=== PATIENT | female | born 1995 | race Caucasian/White ===

== ENCOUNTER 2020-05-05 16:03 | Outpatient (REF) | payer OTHER, SELFPAY | END 2020-05-05 16:04 | disposition home or self-care (01) | LOC: HO.LAB 16:03 | PROVIDERS: Visit Provider Internal Medicine | DX: Z20.828 Contact with and (suspected) exposure to other viral communicable diseases (principal) | CPT/HCPCS: 87635 ==

== ENCOUNTER 2020-07-09 07:39 | Outpatient (REF) | payer OTHER, SELFPAY | END 2020-07-09 07:40 | disposition home or self-care (01) | LOC: HO.LAB 07:39 | PROVIDERS: Visit Provider Internal Medicine | DX: Z20.828 Contact with and (suspected) exposure to other viral communicable diseases (principal) | CPT/HCPCS: C9803; U0003 ==

== ENCOUNTER 2020-11-04 12:19 | Emergency (ER) | payer OTHER, SELFPAY ==
--- NOTE | ~2020-11-04 | XR_ITS ---
EXAMINATION: XR HAND, RIGHT CLINICAL INFORMATION: Crush injury/NAILBED Injury COMPARISON: None TECHNIQUE: PA, lateral, and oblique views of the right hand. FINDINGS: There is soft tissue irregularity consistent with laceration about the dorsal aspect of the second distal phalanx/NAIL Bed. No radio opaque foreign body. No acute fracture or dislocation. XR/XR hand RT min 3V IMPRESSION: Laceration without underlying bony abnormality right second distal phalanx.
[2020-11-04 12:37] VITALS: BP 101/61; PULSE 66; RESP 16; TEMP 36.7; O2SAT 100; BMI 30.8
[2020-11-04] MEDS: Acetaminophen 325 MG TABLET 650 MG PO (12:55)
--- NOTE | 2020-11-04 12:58 | ED.EXTPRO ---
HPI - Extremity Problem General Chief complaint: Extremity Injury, Upper Stated complaint: R HAND INJ AT WORK Time Seen by Provider: 11/04/20 13:49 Source: patient Mode of arrival: ambulatory Limitations: no limitations History of Present Illness HPI Narrative: Patient brought to ED for right hand pain. Patient states box at work fell onto hand. Patient states pain at nails on 2/3/4 finger. Patient denies any other trauma. Related Data Previous Rx's Medication Instructions Recorded cephalexin 500 mg PO QID 7 Days #28 cap 11/04/20 naproxen 500 mg PO BID PRN #20 tab 11/04/20 Allergies Allergy/AdvReac Type Severity Reaction Status Date / Time aspirin [ASA] Allergy Unknown THROAT Unverified 03/26/20 19:39 SWELLING Review of Systems Review of Systems: Yes all other systems are reviewed and are negative Constitutional: Constitutional: Reports as per HPI and Reports no additional constitutional complaints Eyes: Eyes: Reports as per HPI and Reports no additional eye complaints ENT: Reports system reviewed and no additional complaints, except as documented and Reports as per HPI Cardiovascular: Cardiovascular: Reports as per HPI and Reports no additional cardiovascular complaints Respiratory: Respiratory: Reports as per HPI and Reports no additional respiratory complaints Gastrointestinal: Gastrointestinal: Reports as per HPI and Reports no additional gastrointestinal complaints Genitourinary: Genitourinary: Reports no additional female genitourinary complaints and Reports as per HPI Musculoskeletal: Musculoskeletal: Reports no additional musculoskeletal complaints and Reports as per HPI Comments: Right hand pain Neurologic: Reports system reviewed and no additional complaints, except as documented and Reports as per HPI Psychiatric: Psychiatric: Reports no additional psychiatric complaints and Reports as per HPI [facility] Past Medical History Medical History (Updated 11/05/20 @ 00:00 by Background Daemon) Asthma Social History Social History Smoked in Last 30 Days: No Use of substances other than those prescribed or required for medical reasons: Yes Substance Use Type: Marijuana Substance Use Frequency: Socially Advance Directives: No Advance Directives Information Provided: No Physical Exam Vital Signs: Vital Signs: Last Vital Signs Temp 98.0 F 11/04/20 12:37 Pulse 89 11/04/20 14:38 Resp 18 11/04/20 14:38 BP 110/68 11/04/20 14:38 Pulse Ox 98 11/04/20 14:38 Body Mass Index 30.8 Const: General: cooperative, healthy appearing, comfortable, no acute distress, well developed, alert, awake and Physically active Orientation/consciousness: patient oriented x3 HENMT: Head: Yes normal to inspection, Yes No palpable skull fracture present, Yes normocephalic, Yes atraumatic and No abrasion Eyes: General: appearance normal, both eyes and all related structures Neck: Neck: Yes normal visual inspection, Yes full ROM, Yes no lymphadenopathy, Yes no meningeal signs, Yes trachea midline, Yes supple and No tender Chest: Chest palpation & inspection: normal inspection of the chest and normal palpation of entire chest wall Resp: Effort & Inspection: normal respiratory effort and able to speak in complete sentences Auscultation: clear to auscultation bilaterally Cardio: Jugular venous distension: no JVD Heart sounds: S1 normal heart sound present and S2 normal heart sound present GI: Inspection: Yes normal to inspection and No abdominal wall ecchymosis Palpation (GI): Soft to palpation, not firm, nontender, no guarding and not rigid : General: No CVA tenderness and Yes no CVA tenderness Back/Spine/Pelvis: Back: no CVA tenderness, No CVA tenderness and No back tenderness Skin: General skin exam: no rashes or lesions noted and elasticity normal Neuro: General: patient oriented x3, no meningeal signs and CN's II-XI intact bilaterally Cranial nerves: Yes CN's II-XII intact bilaterally Extrem: Other: Rigt hand: cracked nail stuck into nail bed of 2nd finger. Third finger positive for slight cracked in nail, but negative subungal hematoma. 4th finger has fake nail and actual nail plate almost coming. All fingers has complete range of motion and negative for defomities. Motor, neuro and vascular exam of right upper extremity is intact. General: Yes normal to inspection and Yes full ROM Psych: Appearance: grossly normal, well kempt and not disheveled Course Course Course Narrative: Patient will be sent for hand x-ray. Reevaluation(s) Reevaluation #1: Tetanus order an oxycodone for pain relief. 4th finger nail fake nail and actual nail plate removed completey. Third finger left nail left on. 4ml of 2% lidocaine used to digital block second finger. Finger cleaned with bethadine and sterile saline. piece of nail stuck into nail bed of second finger was removed. Plan was to search for possible nail bed laceration and repaired, but patient refused and prefer just for dressing. patient dischaged with antibiotics. Patient will follow up with hand surgeon. MDM - Extremity (Nontraumatic) MDM Narrative Medical decision making narrative: Partial nail removal Lab Data Labs: Lab Results 11/04/20 Range/Units 14:30 Urine Test NEGATIVE (NEGATIVE) Discharge Plan Discharge Clinical Impression: Nail avulsion, finger Patient Disposition: Home, Self-Care Instructions: Nail Avulsion (ED), Nail Removal (ED) Additional Instructions: Return to the ED immediately swelling of fingers, redness, pus discharge, foul odor, fever, chills, or any other concerning symptoms. Please follow-up with your primary care provider Prescriptions: New cephalexin 500 mg capsule 500 mg PO QID 7 Days Qty: 28 RF: 0 naproxen 500 mg tablet 500 mg PO BID PRN (Reason: pain) Qty: 20 RF: 0 Referrals: Melanie Claire MD [Physician] - 2 days (Nail avulsion. Nail plates removed. Xray negative for fracture) Stand Alone Forms: Work/School Release Interventions: ED Discharge Assessment Last Done: 11/04/20 14:59 Discharge Date/Time: 11/04/20 15:00 Print Language: Cymraes
[2020-11-04] MEDS: Lidocaine HCl 2 % MPF 5 ML VIAL INFILTRATI ×2 (13:19)
[2020-11-04] MEDS: oxyCODONE HCl Immed Release 5 MG TABLET PO (14:20)
[2020-11-04 14:37] LABS: UPreg QC Valid YES; Urine Pregnancy NEGATIVE (NEGATIVE)
[2020-11-04 14:38] VITALS: BP 110/68; PULSE 89; RESP 18; O2SAT 98
[2020-11-04] MEDS: Diphth,Pertus(ACell),Tet Adult 0.5 ML SYRINGE IM (14:54)
== END 2020-11-04 15:00 | disposition home or self-care (01) ==
PROVIDERS: Physician Assistant; Emergency Provider Emergency Medicine Emergency Medical Services
DX: S61.310A Laceration without foreign body of right index finger with damage to nail, initial encounter (principal); S61.312A Laceration without foreign body of right middle finger with damage to nail, initial encounter; S61.314A Laceration without foreign body of right ring finger with damage to nail, initial encounter; W20.8XXA Other cause of strike by thrown, projected or falling object, initial encounter; Y93.F9 Activity, other caregiving; Y92.538 Other ambulatory health services establishments as the place of occurrence of the external cause; Y99.0 Civilian activity done for income or pay
CPT/HCPCS: 11730; 73130; 81025; 90471; 90715; 99284

== ENCOUNTER 2020-12-22 08:02 | Emergency (ER) | payer OTHER, SELFPAY ==
[2020-12-22 08:15] VITALS: BP 133/72; PULSE 74; RESP 16; TEMP 36.6; O2SAT 100; BMI 30.9
[2020-12-22 08:43] VITALS: BP 103/58; PULSE 75; RESP 16; O2SAT 100
[2020-12-22 09:13] VITALS: BP 101/53; PULSE 67
[2020-12-22 09:14] VITALS: BP 103/68; PULSE 72
[2020-12-22 09:15] VITALS: BP 112/71; PULSE 69
[2020-12-22 09:22] LABS: MANUAL DIFF FLAG NO
[2020-12-22 09:25] LABS: Basophils Percent Auto 0.3 % (0-2); Eosinophils Absolute Auto 0.1 X10*3/uL (0.0-0.4); Hematocrit 39.5 % (37-47); Hemoglobin 12.6 g/dl (12.0-16.0); Imm Gran Abs Auto 0.03 X10*3/uL (0.00-0.03); Imm Gran Pct Auto 0.3 % (0.0-0.4); Lymphocytes Absolute Auto 1.4 X10*3/uL (1.2-4.9); Lymphocytes Percent Auto 13.4 % (20-40); Mean Corpuscular HGB Conc 31.9 g/dl (31.0-35.0); Mean Corpuscular Hemoglobin 27.6 pg (27.0-33.0); Mean Corpuscular Volume 86.6 fL (80-98); Monocytes Absolute Auto 0.5 X10*3/uL (0.1-1.2); Monocytes Percent Auto 5.1 % (2-11); Neutrophils Absolute Auto 8.4 X10*3/uL (2.0-8.3); Neutrophils Percent Auto 79.9 % (45-73); Platelet Count 217 X10*3/uL (160-400); Red Blood Count 4.56 X10*6/uL (4.20-5.50); Red Cell Distribution Width 14.4 % (11.0-16.0); White Blood Count 10.5 X10*3/uL (4.8-10.8)
[2020-12-22 09:29] LABS: Glucose Urine UA NEG (NEG); Leukocyte Esterase Urine TRACE (NEG); Nitrite Urine NEG (NEG); Specific Gravity - Urine >= 1.030 (1.005-1.025); UACC Culture Trigger YES; UPreg QC Valid YES; Urine Blood NEG (NEG); Urine Ketones NEG (NEG); Urine Pregnancy NEGATIVE (NEGATIVE); Urine Protein 2+ MG/DL (NEG-TRACE)
[2020-12-22 09:31] LABS: Appearance Urine CLOUDY; Color Urine YELLOW
--- NOTE | 2020-12-22 09:31 | ED.GENADULT ---
HPI - General Adult General Chief complaint: Head Injury <CANELO Hobbs Last Filed: 12/22/20 12:01> Stated complaint: Nose bleeds headache <CANELO Hobbs Last Filed: 12/22/20 12:01> Time Seen by Provider: 12/22/20 08:49 <CANELO Hobbs Last Filed: 12/22/20 12:01> Source: patient <CANELO Hobbs Last Filed: 12/22/20 12:01> Mode of arrival: ambulatory <CANELO Hobbs Last Filed: 12/22/20 12:01> Limitations: no limitations <CANELO Hobbs Last Filed: 12/22/20 12:01> History of Present Illness HPI narrative: 25 y/o female presenting to the ER from home with dizziness for several days which lead to a fall this morning. Patient reports she was recently told she had very high thyroid hormone levels and plan was to start on medication soon after he blood levels were redrawn. She reports she has unintentionally lost 80+ lbs in the last 1 year and has had palpitation, hair loss and increased anxiety. She has been dizzy for the last week or so, worse with movement and position changes. She also states she is 2 weeks late for her menses. Concerned she is . She is sexually active. She also has RUQ cramping abdominal pain. No N/V/D or fevers. No SOB or chest pain. When she fell this morning she was walking down the stairs in her home and she hit her head against the railing. She did not lose consciousness. She had a nose bleed that stopped with direct pressure. She did not hit her nose or face when she fell. <CANELO Hobbs Last Filed: 12/22/20 12:01> MD complaint: dizziness <CANELO Hobbs Last Filed: 12/22/20 12:01> Onset (ago): week(s) <CANELO Hobbs Last Filed: 12/22/20 12:01> Location: head and face <CANELO Hobbs Last Filed: 12/22/20 12:01> Radiation: non-radiation <CANELO Hobbs Last Filed: 12/22/20 12:01> Severity: moderate <CANELO Hobbs Last Filed: 12/22/20 12:01> Pain Consistency: intermittent <CANELO Hobbs Last Filed: 12/22/20 12:01> Relieving factors: rest <CANELO Hobbs Last Filed: 12/22/20 12:01> Exacerbating factors: movement <CANELO Hobbs Last Filed: 12/22/20 12:01> Associated symptoms: headaches, loss of appetite and malaise <CANELO Hobbs Last Filed: 12/22/20 12:01> Treatments prior to arrival: none <CANELO Hobbs Last Filed: 12/22/20 12:01> Related Data Home medications: Previous Rx's Medication Instructions Recorded cephalexin 500 mg PO QID 7 Days #28 cap 11/04/20 naproxen 500 mg PO BID PRN #20 tab 11/04/20 acetaminophen 500 mg PO Q6H PRN #10 cap 01/19/21 <CANELO Hobbs Last Filed: 12/22/20 12:01> Allergies/adverse reactions: Allergies Allergy/AdvReac Type Severity Reaction Status Date / Time aspirin [ASA] Allergy Severe THROAT Verified 01/19/21 02:21 SWELLING <CANELO Hobbs Last Filed: 12/22/20 12:01> Review of Systems Review of Systems: Constitutional: No Fever, No Chills ENT/Mouth: No sore throat, No Rhinorrhea, No Swallowing Difficulty, +Epistaxis Eyes: No Eye Pain, No Swelling, No Redness Cardiovascular: No Chest Pain, No SOB, No Orthopnea, No Edema Respiratory: No Cough, No Sputum, No Wheezing, No dyspnea Gastrointestinal: No Nausea, No Vomiting, No Diarrhea, + abdominal Pain, No Hematochezia, No Melena Genitourinary: No Dysuria, No Urinary Frequency, No Hematuria Musculoskeletal: No joint pain, No Myalgias Skin: No Skin Lesions, No rash Neuro: No Weakness, No Numbness, + Dizziness, + Headache Psych: + Anxiety/Panic, No Depression Heme/Lymph: No Bruising, No Lymphadenopathy Endocrine: No Polyuria, No Polydipsia <Myranda Renschler, PA - Last Filed: 12/22/20 12:01> [facility] Past Medical History Medical History: Medical History Asthma <CANELO Hobbs - Last Filed: 12/22/20 12:01> Social History Social History: Social History Alcohol intake: never Patient Tobacco Use Status: Never used Tobacco Substance Use Type: Marijuana Advance Directives: No Advance Directives Information Provided: No <CANELO Hobbs - Last Filed: 12/22/20 12:01> Physical Exam Vital Signs: Vital Signs: Last Vital Signs Temp 98 F 12/22/20 08:15 Pulse 60 12/22/20 10:07 Resp 16 12/22/20 10:07 BP 91/53 L 12/22/20 10:07 Pulse Ox 100 12/22/20 10:07 Body Mass Index 30.9 Appearance: Alert. Oriented X3. No acute distress. Eyes: Pupils equal, round and reactive to light. EOMI, no nystagmus ENT: Pharynx normal. Neck: Normal inspection. Neck supple. CVS: Normal heart rate and rhythm. Pulses normal. Respiratory: No respiratory distress. Breath sounds normal. Abdomen: Soft and nontender. +BS x4 Skin: Skin warm and dry. Normal skin color. Normal skin turgor. No rashes. Extremities: No lower extremity edema. Neuro: Oriented X 3. No motor deficit. No sensory deficit. <CANELO Hobbs - Last Filed: 12/22/20 12:01> Vital Signs: Last Vital Signs Temp 98 F 12/22/20 08:15 Pulse 60 12/22/20 10:07 Resp 16 12/22/20 10:07 BP 91/53 L 12/22/20 10:07 Pulse Ox 100 12/22/20 10:07 Body Mass Index 30.9 <Mikie Tran MD - Last Filed: 01/27/21 16:45> Course Course Course Narrative: 25 y/o female presenting with dizziness and a fall this morning. She hit her head but did not lose consciousness. Nose bleed resolved quickly. Exam is not concerning for any facial or skull fractures. She appears well. She reports ongoing dizziness, weight loss, palpitations and anxiety which my all be related to ?hyperthyroidism which she is being workup for as an outpatient. She is supposed to be started on medication soon. Will get orthostatic VS and lab workup. <CANELO Hobbs - Last Filed: 12/22/20 12:01> I have reviewed the chart <Mikie Tran MD - Last Filed: 01/27/21 16:45> Reevaluation(s) Reevaluation #1: Orthostatics are negative but she felt dizzy with standing. Given 1 L IVF with significant improvement. She feels well. Her labs are normal, including negative . TSH normal so it did not reflex to T4. T3 was sent however contacted the lab and this is a 3-4 day send out. Encouraged patient to follow up with her outpatient provider and we will call her if significantly abnormal. Patient is agreeable with plan. Stable for discharge home. <CANELO Hobbs - Last Filed: 12/22/20 12:01> Medical Decision Making Lab Data Result diagrams: : 12/22/20 09:02 12/22/20 09:02 <CANELO Hobbs - Last Filed: 12/22/20 12:01> Labs: Lab Results 12/22/20 12/22/20 12/22/20 Range/Units 09:02 09:02 09:02 WBC 10.5 (4.8-10.8) X10*3/uL RBC 4.56 (4.20-5.50) X10*6/uL Hgb 12.6 (12.0-16.0) g/dl Hct 39.5 (37-47) % MCV 86.6 (80-98) fL MCH 27.6 (27.0-33.0) pg MCHC 31.9 (31.0-35.0) g/dl RDW 14.4 (11.0-16.0) % Plt Count 217 (160-400) X10*3/uL MPV 11.0 (9.4-12.3) fL Immature Gran % (Auto) 0.3 (0.0-0.4) % Neut % (Auto) 79.9 H (45-73) % Lymph % (Auto) 13.4 L (20-40) % [place] % (Auto) 5.1 (2-11) % Eos % (Auto) 1.0 (0-4) % Baso % (Auto) 0.3 (0-2) % Lymph # (Auto) 1.4 (1.2-4.9) X10*3/uL [place] # (Auto) 0.5 (0.1-1.2) X10*3/uL Eos # (Auto) 0.1 (0.0-0.4) X10*3/uL Baso # (Auto) 0.0 (0.0-0.2) X10*3/uL Abs Immat Gran (auto) 0.03 (0.00-0.03) X10*3/uL Absolute Neuts (auto) 8.4 H (2.0-8.3) X10*3/uL Absolute Nucleated RBC 0.000 (0.0-0.012) X10*3/uL Nucleated RBC % (auto) 0.0 (0.0-0.2) /100WBC Sodium 141 (135-145) mmol/L Potassium 4.3 (3.3-5.1) mmol/L Chloride 109 H (96-108) mmol/L Carbon Dioxide 25 (22-29) mmol/L Anion Gap 11 L (12-20) BUN 12 (9-16) mg/dL Creatinine 0.71 (0.5-1.4) mg/dL Estim Creat Clear Calc 153.5 Estimated GFR > 60 Random Glucose 76 (60-115) mg/dL Calcium 9.2 (8.4-10.2) mg/dL Magnesium 1.9 (1.6-2.6) mg/dL Total Bilirubin 0.9 (0.0-1.0) mg/dL Direct Bilirubin 0.3 (0.0-0.5) mg/dL AST 16 (5-31) U/L ALT 10 (0-31) U/L Alkaline Phosphatase 67 (39-117) U/L Total Protein 7.2 (6.5-8.0) g/dL Albumin 4.2 (3.5-5.0) g/dL TSH 0.35 (0.32-4.0) uIU/mL Total T3 (76-181) ng/dL Beta HCG, Quant < 2 mIU/mL Urine Color Urine Appearance Urine pH (5.0-8.0) Ur Specific [place] (1.005-1.025) Urine Protein (NEG-TRACE) MG/DL Urine Glucose (UA) (NEG) MG/DL Urine Ketones (NEG) MG/DL Urine Blood (NEG) Urine Nitrite (NEG) Ur Leukocyte Esterase (NEG) Urine RBC (0) /HPF Urine WBC (0-4) /HPF Ur Squamous Epith Cells /LPF Calcium Oxalate Crystal /LPF Urine Bacteria /LPF Urine Mucus /LPF Urine Test NEGATIVE (NEGATIVE) 12/22/20 12/22/20 Range/Units 09:02 09:02 WBC (4.8-10.8) X10*3/uL RBC (4.20-5.50) X10*6/uL Hgb (12.0-16.0) g/dl Hct (37-47) % MCV (80-98) fL MCH (27.0-33.0) pg MCHC (31.0-35.0) g/dl RDW (11.0-16.0) % Plt Count (160-400) X10*3/uL MPV (9.4-12.3) fL Immature Gran % (Auto) (0.0-0.4) % Neut % (Auto) (45-73) % Lymph % (Auto) (20-40) % [place] % (Auto) (2-11) % Eos % (Auto) (0-4) % Baso % (Auto) (0-2) % Lymph # (Auto) (1.2-4.9) X10*3/uL [place] # (Auto) (0.1-1.2) X10*3/uL Eos # (Auto) (0.0-0.4) X10*3/uL Baso # (Auto) (0.0-0.2) X10*3/uL Abs Immat Gran (auto) (0.00-0.03) X10*3/uL Absolute Neuts (auto) (2.0-8.3) X10*3/uL Absolute Nucleated RBC (0.0-0.012) X10*3/uL Nucleated RBC % (auto) (0.0-0.2) /100WBC Sodium (135-145) mmol/L Potassium (3.3-5.1) mmol/L Chloride (96-108) mmol/L Carbon Dioxide (22-29) mmol/L Anion Gap (12-20) BUN (9-16) mg/dL Creatinine (0.5-1.4) mg/dL Estim Creat Clear Calc Estimated GFR Random Glucose (60-115) mg/dL Calcium (8.4-10.2) mg/dL Magnesium (1.6-2.6) mg/dL Total Bilirubin (0.0-1.0) mg/dL Direct Bilirubin (0.0-0.5) mg/dL AST (5-31) U/L ALT (0-31) U/L Alkaline Phosphatase (39-117) U/L Total Protein (6.5-8.0) g/dL Albumin (3.5-5.0) g/dL TSH (0.32-4.0) uIU/mL Total T3 89 (76-181) ng/dL Beta HCG, Quant mIU/mL Urine Color YELLOW Urine Appearance CLOUDY Urine pH 6.0 (5.0-8.0) Ur Specific [place] >= 1.030 H (1.005-1.025) Urine Protein 2+ H (NEG-TRACE) MG/DL Urine Glucose (UA) NEG (NEG) MG/DL Urine Ketones NEG (NEG) MG/DL Urine Blood NEG (NEG) Urine Nitrite NEG (NEG) Ur Leukocyte Esterase TRACE H (NEG) Urine RBC 0 (0) /HPF Urine WBC 1-4 (0-4) /HPF Ur Squamous Epith Cells 2+ /LPF Calcium Oxalate Crystal 1+ /LPF Urine Bacteria 1+ /LPF Urine Mucus 3+ /LPF Urine Test (NEGATIVE) <CANELO Hobbs - Last Filed: 12/22/20 12:01> Lab Results 12/22/20 12/22/20 12/22/20 Range/Units 09:02 09:02 09:02 WBC 10.5 (4.8-10.8) X10*3/uL RBC 4.56 (4.20-5.50) X10*6/uL Hgb 12.6 (12.0-16.0) g/dl Hct 39.5 (37-47) % MCV 86.6 (80-98) fL MCH 27.6 (27.0-33.0) pg MCHC 31.9 (31.0-35.0) g/dl RDW 14.4 (11.0-16.0) % Plt Count 217 (160-400) X10*3/uL MPV 11.0 (9.4-12.3) fL Immature Gran % (Auto) 0.3 (0.0-0.4) % Neut % (Auto) 79.9 H (45-73) % Lymph % (Auto) 13.4 L (20-40) % [place] % (Auto) 5.1 (2-11) % Eos % (Auto) 1.0 (0-4) % Baso % (Auto) 0.3 (0-2) % Lymph # (Auto) 1.4 (1.2-4.9) X10*3/uL [place] # (Auto) 0.5 (0.1-1.2) X10*3/uL Eos # (Auto) 0.1 (0.0-0.4) X10*3/uL Baso # (Auto) 0.0 (0.0-0.2) X10*3/uL Abs Immat Gran (auto) 0.03 (0.00-0.03) X10*3/uL Absolute Neuts (auto) 8.4 H (2.0-8.3) X10*3/uL Absolute Nucleated RBC 0.000 (0.0-0.012) X10*3/uL Nucleated RBC % (auto) 0.0 (0.0-0.2) /100WBC Sodium 141 (135-145) mmol/L Potassium 4.3 (3.3-5.1) mmol/L Chloride 109 H (96-108) mmol/L Carbon Dioxide 25 (22-29) mmol/L Anion Gap 11 L (12-20) BUN 12 (9-16) mg/dL Creatinine 0.71 (0.5-1.4) mg/dL Estim Creat Clear Calc 153.5 Estimated GFR > 60 Random Glucose 76 (60-115) mg/dL Calcium 9.2 (8.4-10.2) mg/dL Magnesium 1.9 (1.6-2.6) mg/dL Total Bilirubin 0.9 (0.0-1.0) mg/dL Direct Bilirubin 0.3 (0.0-0.5) mg/dL AST 16 (5-31) U/L ALT 10 (0-31) U/L Alkaline Phosphatase 67 (39-117) U/L Total Protein 7.2 (6.5-8.0) g/dL Albumin 4.2 (3.5-5.0) g/dL TSH 0.35 (0.32-4.0) uIU/mL Total T3 (76-181) ng/dL Beta HCG, Quant < 2 mIU/mL Urine Color Urine Appearance Urine pH (5.0-8.0) Ur Specific [place] (1.005-1.025) Urine Protein (NEG-TRACE) MG/DL Urine Glucose (UA) (NEG) MG/DL Urine Ketones (NEG) MG/DL Urine Blood (NEG) Urine Nitrite (NEG) Ur Leukocyte Esterase (NEG) Urine RBC (0) /HPF Urine WBC (0-4) /HPF Ur Squamous Epith Cells /LPF Calcium Oxalate Crystal /LPF Urine Bacteria /LPF Urine Mucus /LPF Urine Test NEGATIVE (NEGATIVE) 12/22/20 12/22/20 Range/Units 09:02 09:02 WBC (4.8-10.8) X10*3/uL RBC (4.20-5.50) X10*6/uL Hgb (12.0-16.0) g/dl Hct (37-47) % MCV (80-98) fL MCH (27.0-33.0) pg MCHC (31.0-35.0) g/dl RDW (11.0-16.0) % Plt Count (160-400) X10*3/uL MPV (9.4-12.3) fL Immature Gran % (Auto) (0.0-0.4) % Neut % (Auto) (45-73) % Lymph % (Auto) (20-40) % [place] % (Auto) (2-11) % Eos % (Auto) (0-4) % Baso % (Auto) (0-2) % Lymph # (Auto) (1.2-4.9) X10*3/uL [place] # (Auto) (0.1-1.2) X10*3/uL Eos # (Auto) (0.0-0.4) X10*3/uL Baso # (Auto) (0.0-0.2) X10*3/uL Abs Immat Gran (auto) (0.00-0.03) X10*3/uL Absolute Neuts (auto) (2.0-8.3) X10*3/uL Absolute Nucleated RBC (0.0-0.012) X10*3/uL Nucleated RBC % (auto) (0.0-0.2) /100WBC Sodium (135-145) mmol/L Potassium (3.3-5.1) mmol/L Chloride (96-108) mmol/L Carbon Dioxide (22-29) mmol/L Anion Gap (12-20) BUN (9-16) mg/dL Creatinine (0.5-1.4) mg/dL Estim Creat Clear Calc Estimated GFR Random Glucose (60-115) mg/dL Calcium (8.4-10.2) mg/dL Magnesium (1.6-2.6) mg/dL Total Bilirubin (0.0-1.0) mg/dL Direct Bilirubin (0.0-0.5) mg/dL AST (5-31) U/L ALT (0-31) U/L Alkaline Phosphatase (39-117) U/L Total Protein (6.5-8.0) g/dL Albumin (3.5-5.0) g/dL TSH (0.32-4.0) uIU/mL Total T3 89 (76-181) ng/dL Beta HCG, Quant mIU/mL Urine Color YELLOW Urine Appearance CLOUDY Urine pH 6.0 (5.0-8.0) Ur Specific [place] >= 1.030 H (1.005-1.025) Urine Protein 2+ H (NEG-TRACE) MG/DL Urine Glucose (UA) NEG (NEG) MG/DL Urine Ketones NEG (NEG) MG/DL Urine Blood NEG (NEG) Urine Nitrite NEG (NEG) Ur Leukocyte Esterase TRACE H (NEG) Urine RBC 0 (0) /HPF Urine WBC 1-4 (0-4) /HPF Ur Squamous Epith Cells 2+ /LPF Calcium Oxalate Crystal 1+ /LPF Urine Bacteria 1+ /LPF Urine Mucus 3+ /LPF Urine Test (NEGATIVE) <Mikie Tran MD - Last Filed: 01/27/21 16:45> Discharge Plan Discharge Clinical Impression: Dizziness <CANELO Hobbs - Last Filed: 12/22/20 12:01> Patient Disposition: Home, Self-Care <CANELO Hobbs - Last Filed: 12/22/20 12:01> Instructions: Dizziness (ED) <CANELO Hobbs - Last Filed: 12/22/20 12:01> Additional Instructions: Your lab workup today was normal. Your test was negative. Recommend rest and staying hydrated. Drink plenty of water. When changing positions, do so slowly. Follow up with your doctor this week. If you have any worsening symptoms come back to the ER for further evaluation. <CANELO Hobbs - Last Filed: 12/22/20 12:01> Prescriptions: No Action acetaminophen 500 mg capsule 500 mg PO Q6H PRN (Reason: pain) Qty: 10 RF: 0 cephalexin 500 mg capsule 500 mg PO QID 7 Days Qty: 28 RF: 0 naproxen 500 mg tablet 500 mg PO BID PRN (Reason: pain) Qty: 20 RF: 0 <CANELO Hobbs - Last Filed: 12/22/20 12:01> Stand Alone Forms: Work/School Release <CANELO Hobbs - Last Filed: 12/22/20 12:01> Interventions: ED Discharge Assessment Last Done: 12/22/20 12:02 <CANELO Hobbs - Last Filed: 12/22/20 12:01> Discharge Date/Time: 12/22/20 12:02 <CANELO Hobbs - Last Filed: 12/22/20 12:01>
[2020-12-22 09:38] LABS: Bacteria Urine 1+ /LPF; RBC Urine 0 /HPF (0); Squamous Epithelial Cell Urine 2+ /LPF
[2020-12-22 09:39] LABS: Calcium Oxalate Crystals Urine 1+ /LPF; Mucus Urine 3+ /LPF
[2020-12-22 09:50] LABS: Alanine Aminotransferase 10 U/L (0-31); Albumin Level 4.2 g/dL (3.5-5.0); Alkaline Phosphatase 67 U/L (39-117); Anion Gap 11 (12-20); Aspartate Amino Transferase 16 U/L (5-31); Bilirubin Direct 0.3 mg/dL (0.0-0.5); Bilirubin Total 0.9 mg/dL (0.0-1.0); Blood Urea Nitrogen 12 mg/dL (9-16); Calcium 9.2 mg/dL (8.4-10.2); Carbon Dioxide 25 mmol/L (22-29); Chloride 109 mmol/L (96-108); Creatinine Clr Calc Pharmacy 153.5; Estimated Glomerular Filt Rate > 60; Glucose Random 76 mg/dL (60-115); Magnesium 1.9 mg/dL (1.6-2.6); Potassium 4.3 mmol/L (3.3-5.1); Sodium 141 mmol/L (135-145); Total Protein 7.2 g/dL (6.5-8.0)
[2020-12-22 10:07] VITALS: BP 91/53; PULSE 60; RESP 16; O2SAT 100
[2020-12-22 10:10] LABS: HCG Quantitative < 2 mIU/mL; TSH reflex Free T4 0.35 uIU/mL (0.32-4.0)
--- NOTE | 2020-12-22 10:15 | PC.NURSE ---
Patient talking on cellphone in no acute distress. IVF's started per midlevels orders.
[2020-12-22] MEDS: 0.9 % Sodium Chloride 1,000 ML 999 ML IVCONT (10:19)
[2020-12-24 01:16] LABS: Triiodothyronine T3 Total 89 ng/dL (76-181)
== END 2020-12-22 12:02 | disposition home or self-care (01) ==
PROVIDERS: Physician Assistant; Emergency Provider Emergency Medicine
DX: R42 Dizziness and giddiness (principal); R94.6 Abnormal results of thyroid function studies; R63.4 Abnormal weight loss; J45.909 Unspecified asthma, uncomplicated; Z91.81 History of falling
CPT/HCPCS: 36415; 80048; 80076; 81001; 81003; 81025; 83735; 84443; 84480; 84702; 85025; 87086; 96360; 99284; 99285

== ENCOUNTER 2021-01-18 21:56 | Emergency (ER) | payer OTHER, SELFPAY ==
--- NOTE | ~2021-01-18 | XR_ITS ---
EXAMINATION: XR FOOT, LEFT CLINICAL INFORMATION: Foot injury COMPARISON: None TECHNIQUE: AP, lateral, and oblique views of the left foot. FINDINGS: The bones and soft tissues are normal. No fracture. Alignment is anatomic. Joint spaces are maintained. XR/XR foot LT min 3V IMPRESSION: Normal left foot.
[2021-01-18 22:02] VITALS: BP 108/73; PULSE 84; RESP 8; TEMP 36.8; O2SAT 100; BMI 28.8
--- NOTE | 2021-01-18 23:28 | PC.NURSE ---
CALLED PATIENT NO RESPONSE.
--- NOTE | 2021-01-18 23:35 | PC.NURSE ---
called to [place] [id number] not in [facility].
--- NOTE | 2021-01-19 00:02 | PC.NURSE ---
CALLED TO [facility]. PT NOT IN [facility]. LWT.
== END 2021-01-19 00:27 | disposition left against medical advice (07) ==
PROVIDERS: Emergency Provider Emergency Medicine
DX: Z04.2 Encounter for examination and observation following work accident (principal); M79.672 Pain in left foot
CPT/HCPCS: 73630; 99282; 99283

== ENCOUNTER 2021-01-19 02:10 | Emergency (ER) | payer OTHER, SELFPAY ==
[2021-01-19 02:21] VITALS: BP 111/57; PULSE 72; RESP 16; TEMP 36.4; O2SAT 100; BMI 28.7
--- NOTE | 2021-01-19 02:57 | ED.LOWEXIN ---
HPI - Extremity Injury (Lower) General Chief Complaint: Extremity Injury, Lower Stated Complaint: work injur, pt left then came back Time Seen by Provider: 01/19/21 02:52 Source: patient Mode of arrival: ambulatory Limitations: no limitations History of Present Illness HPI Narrative: Patient comes emergency room complaining of left dorsal foot pain. Earlier today, patient was at work, states a box fell on her foot. Patient has been able to walk, complaining of localized swelling, no abrasions. Patient was here in the emergency room earlier today, left without being seen, now she returns. Patient states she has not had any pain medications. Related Data Previous Rx's Medication Instructions Recorded cephalexin 500 mg PO QID 7 Days #28 cap 11/04/20 naproxen 500 mg PO BID PRN #20 tab 11/04/20 acetaminophen 500 mg PO Q6H PRN #10 cap 01/19/21 Allergies Allergy/AdvReac Type Severity Reaction Status Date / Time aspirin [ASA] Allergy Severe THROAT Verified 01/19/21 02:21 SWELLING Review of Systems Review of Systems: Constitutional : No Weight loss, No Fever, No Chills, No Night Sweats, No Fatigue, No Malaise ENT/Mouth : No Hearing loss, No Ear Pain, No Nasal Congestion, No Sinus Pain, No Hoarseness, No sore throat, No Rhinorrhea, No Swallowing Difficulty Eyes: No Eye Pain, No Swelling, No Redness, No Foreign Body, No Discharge, No Vision Changes Cardiovascular : No Chest Pain, No SOB, No Dyspnea on Exertion, No Orthopnea, No Edema, No Palpitations Respiratory : No Cough, No Sputum, No Wheezing, No Smoke Exposure, No Dyspnea Gastrointestinal : No Nausea, No Vomiting, No Diarrhea, No Constipation, No abdominal Pain, No Hematochezia, No Melena Genitourinary : no irregular bleeding, No Dysuria, No Urinary Frequency, No Hematuria, No Urinary Incontinence, No Urgency, No Flank Pain, No Urinary Flow Changes, No Hesitancy Musculoskeletal : Complaining of left foot pain on the dorsum, no ankle pain, No Myalgias, No Joint Swelling Skin : No Skin Lesions, No rash Neuro : No Weakness, No Numbness, No Paresthesias, No Loss of Consciousness, No Dizziness, No Headache Psych : No Anxiety/Panic, No Depression, No SI/HI/AH/VH, No Social Issues, Heme/Lymph: No Bruising, No Bleeding,No Lymphadenopathy Endocrine : No Polyuria, No Polydipsia, No Temperature Intolerance [facility] Past Medical History Medical History Asthma Social History Social History Alcohol intake: never Patient Tobacco Use Status: Never used Tobacco Substance Use Type: Marijuana Physical Exam Vital Signs: Vital Signs: Last Vital Signs Temp 97.6 F 01/19/21 02:21 Pulse 72 01/19/21 02:21 Resp 16 01/19/21 02:21 BP 111/57 L 01/19/21 02:21 Pulse Ox 100 01/19/21 02:21 Body Mass Index 28.7 Appearance: Alert. Oriented X3. No acute distress. Eyes: Pupils equal, round and reactive to light. ENT: Pharynx normal. Neck: Normal inspection. Neck supple. No lymph nodes noted. No crepitus CVS: Normal heart rate and rhythm. Pulses normal. Normal S1 and S2 Respiratory: No respiratory distress. Breath sounds normal. No Wheezing. No rales Abdomen: Soft and nontender. No rigidity. No distention. good BS x4 Skin: Skin warm and dry. Normal skin color. Normal skin turgor. Extremities: No lower extremity edema. Left foot is slightly swollen, erythema, no ecchymosis, pain to palpation over all the metatarsals, no ankle pain, patient ambulatory Neuro: Oriented X 3. No motor deficit. No sensory deficit. Moving all extermities. No slurred speech. Course Course Course Narrative: I discussed the x-ray with the patient, no acute findings. MDM - Extremity Injury (Lower) Imaging Data Left foot x-ray: Radiologist's impression: FINDINGS: The bones and soft tissues are normal. No fracture. Alignment is anatomic. Joint spaces are maintained. XR/XR foot LT min 3V IMPRESSION: Normal left foot. Discharge Plan Discharge Clinical Impression: Contusion of foot Patient Disposition: Home, Self-Care Instructions: Foot Contusion (ED) Additional Instructions: Please follow-up with your primary care physician tomorrow. If you have any worsening or new symptoms, please return to the emergency room or call 911 Prescriptions: New acetaminophen 500 mg capsule 500 mg PO Q6H PRN (Reason: pain) Qty: 10 RF: 0 No Action cephalexin 500 mg capsule 500 mg PO QID 7 Days Qty: 28 RF: 0 naproxen 500 mg tablet 500 mg PO BID PRN (Reason: pain) Qty: 20 RF: 0 Stand Alone Forms: Work/School Release
[2021-01-19] MEDS: Acetaminophen 325 MG TABLET 650 MG PO (03:01)
== END 2021-01-19 03:19 | disposition home or self-care (01) ==
LOC: HO.ED 03:07
PROVIDERS: Emergency Provider Emergency Medicine
DX: S90.32XA Contusion of left foot, initial encounter (principal); W20.8XXA Other cause of strike by thrown, projected or falling object, initial encounter; Y93.89 Activity, other specified; Y92.59 Other trade areas as the place of occurrence of the external cause; Y99.0 Civilian activity done for income or pay
CPT/HCPCS: 99283

== ENCOUNTER 2021-03-13 06:45 | Emergency (ER) | payer OTHER, SELFPAY ==
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
[2021-03-13 06:52] VITALS: BP 107/64; BP 128/66; PULSE 70; PULSE 72; RESP 20; TEMP 36.4; O2SAT 100; BMI 27.9
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
[2021-03-13 07:38] VITALS: RESP 16
[2021-03-13] MEDS: fentaNYL citrate/PF 100 MCG/2 ML VIAL 25 MCG IVPUSH (07:38)
[2021-03-13 08:11] LABS: MANUAL DIFF FLAG NO
[2021-03-13 08:13] LABS: Basophils Percent Auto 0.2 % (0-2); Eosinophils Absolute Auto 0.2 X10*3/uL (0.0-0.4); Eosinophils Percent Auto 1.5 % (0-4); Hematocrit 37.8 % (37-47); Hemoglobin 12.4 g/dl (12.0-16.0); Imm Gran Abs Auto 0.04 X10*3/uL (0.00-0.03); Imm Gran Pct Auto 0.4 % (0.0-0.4); Lymphocytes Absolute Auto 1.1 X10*3/uL (1.2-4.9); Lymphocytes Percent Auto 10.8 % (20-40); Mean Corpuscular HGB Conc 32.8 g/dl (31.0-35.0); Mean Corpuscular Hemoglobin 28.1 pg (27.0-33.0); Mean Corpuscular Volume 85.7 fL (80-98); Mean Platelet Volume 10.7 fL (9.4-12.3); Monocytes Absolute Auto 0.4 X10*3/uL (0.1-1.2); Neutrophils Absolute Auto 8.8 X10*3/uL (2.0-8.3); Neutrophils Percent Auto 83.1 % (45-73); Platelet Count 179 X10*3/uL (160-400); Red Blood Count 4.41 X10*6/uL (4.20-5.50); White Blood Count 10.5 X10*3/uL (4.8-10.8)
[2021-03-13 08:38] LABS: Alanine Aminotransferase 12 U/L (0-31); Albumin Level 4.4 g/dL (3.5-5.0); Alkaline Phosphatase 67 U/L (39-117); Anion Gap 12 (12-20); Aspartate Amino Transferase 16 U/L (5-31); Blood Urea Nitrogen 9 mg/dL (9-16); Calcium 9.3 mg/dL (8.4-10.2); Carbon Dioxide 27 mmol/L (22-29); Chloride 108 mmol/L (96-108); Estimated Glomerular Filt Rate > 60; Glucose Random 78 mg/dL (60-115); Sodium 143 mmol/L (135-145); Total Protein 7.5 g/dL (6.5-8.0)
[2021-03-13 08:40] LABS: HCG Quantitative < 2 mIU/mL
[2021-03-13 08:51] VITALS: BP 117/73; PULSE 84; RESP 20; TEMP 36.6; O2SAT 98
[2021-03-13] MEDS: HYDROmorphone HCl 0.5 MG/0.5 ML SYRINGE 0.25 MG IVPUSH (09:32)
[2021-03-13 10:05] VITALS: BP 115/72; PULSE 86; RESP 18; TEMP 36.5; O2SAT 99
[2021-03-13 10:24] VITALS: BP 108/68; PULSE 64; RESP 18; TEMP 36.8; O2SAT 100
[2021-03-13] MEDS: iohexoL 350 MG/ML 100 ML INFUS..BTL IV (10:26)
[2021-03-13 11:08] LABS: Glucose Urine UA NEG (NEG); Leukocyte Esterase Urine NEG (NEG); Nitrite Urine NEG (NEG); PH 6.5 (5.0-8.0); Urine Blood NEG (NEG); Urine Ketones 5 MG/DL (NEG); Urine Protein NEG (NEG-TRACE)
[2021-03-13 11:10] LABS: Appearance Urine HAZY; Color Urine YELLOW; UPreg QC Valid YES; Urine Pregnancy NEGATIVE (NEGATIVE)
--- NOTE | 2021-03-13 12:15 | PC.NURSE ---
ASKED PROVIDER FOR ADDITIONAL PAIN MEDICATION FOR PATIENT, PROVIDER DIDN'T FEEL ANYTHING ELSE WAS INDICATED EXCEPT WHAT WAS SUGGESTED
== END 2021-03-13 12:00 | disposition home or self-care (01) ==
PROVIDERS: Emergency Provider Student in an Organized Health Care Education/Training Program; PCP Family Medicine
DX: S29.9XXA Unspecified injury of thorax, initial encounter (principal); Y04.2XXA Assault by strike against or bumped into by another person, initial encounter; R10.12 Left upper quadrant pain; Y93.9 Activity, unspecified; Y92.9 Unspecified place or not applicable; Y99.9 Unspecified external cause status; Z72.89 Other problems related to lifestyle; Z63.0 Problems in relationship with spouse or partner
CPT/HCPCS: 36415; 71045; 71260; 74177; 80053; 81003; 81025; 84702; 85025; 96374; 96375; 99284; J1170; J3010; Q9967

== ENCOUNTER 2021-04-27 17:51 | Emergency (ER) | payer OTHER, SELFPAY | END 2021-04-27 19:06 | disposition left against medical advice (07) | PROVIDERS: Emergency Provider Emergency Medicine | DX: O26.899 Other specified pregnancy related conditions, unspecified trimester (principal); R42 Dizziness and giddiness; Z3A.00 Weeks of gestation of pregnancy not specified ==

== ENCOUNTER 2024-09-19 20:55 | Emergency (ER) | payer OTHER, SELFPAY ==
[2024-09-19 21:02] VITALS: BP 106/62; BP 90/70; PULSE 110; PULSE 88; RESP 18; TEMP 36.9; O2SAT 99; BMI 34.7
[2024-09-19] MEDS: methylPREDNISolone Sod Succ 125 MG/2 ML VIAL IVPUSH (21:19)
[2024-09-19] MEDS: Famotidine/PF 20 MG/2 ML VIAL IVPUSH (21:19)
[2024-09-19] MEDS: diphenhydrAMINE HCL 50 MG/ML VIAL IVPUSH (21:19)
[2024-09-19] MEDS: 0.9 % Sodium Chloride 1,000 ML 999 ML IVCONT (21:27)
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
[2024-09-19 22:55] VITALS: BP 98/54; PULSE 79; RESP 16; TEMP 36.6; O2SAT 98
== END 2024-09-19 23:03 | disposition home or self-care (01) ==
PROVIDERS: Emergency Provider Emergency Medicine
DX: T78.2XXA Anaphylactic shock, unspecified, initial encounter (principal); L50.9 Urticaria, unspecified; X58.XXXA Exposure to other specified factors, initial encounter
CPT/HCPCS: 96374; 96375; 99284; J1200; J2919